=== PATIENT | male | born 1970 | race Caucasian/White ===

== ENCOUNTER 2023-10-08 08:17 | Outpatient (CLI) | payer OTHER, SELFPAY | END 2023-10-08 08:18 | disposition home or self-care (01) | PROVIDERS: PCP Family Medicine; Visit Provider Registered Nurse | DX: Z00.00 Encounter for general adult medical examination without abnormal findings (principal); Z13.6 Encounter for screening for cardiovascular disorders; Z13.1 Encounter for screening for diabetes mellitus | CPT/HCPCS: 80061; 82947 ==